=== PATIENT | female | born 1970 | race Caucasian/White ===

== ENCOUNTER 2017-02-07 15:43 | Emergency (ER) | payer BC, MEDICAID ==
[~2017-02-07] VITALS: Ht 152.4 cm; Wt 59.0 kg
--- NOTE | 2017-02-07 17:26 | NUR ---
MSE COMPLETED, PT D/C'D HOME, ACI GIVEN. PT AMBULATED W/O DIFF/TOOK ALL BELONGINGS.
[2017-02-07 17:28] VITALS: BP 142/81
== END 2017-02-07 17:28 | disposition home or self-care (01) ==
LOC: ER 15:53
DX: S80.12XA Contusion of left lower leg, initial encounter (principal); W18.30XA Fall on same level, unspecified, initial encounter; Y93.89 Activity, other specified; Y92.9 Unspecified place or not applicable; Y99.9 Unspecified external cause status
CPT/HCPCS: 73590; 99284; A4663

== ENCOUNTER 2018-03-15 16:52 | Emergency (ER) | payer SELFPAY ==
[~2018-03-15] VITALS: Ht 165.1 cm; Wt 56.7 kg
--- NOTE | 2018-03-15 18:45 | NUR ---
DR CORRAL AT THE BEDSIDE FOR MSE.
[2018-03-15 19:00] LABS: *BILIRUBIN,URIN NEGATIVE (NEGATIVE); *BLOOD, URINE 2+ (NEGATIVE); *COLOR,URINE YELLOW (YELLOW); *KETONES,URINE NEGATIVE (NEGATIVE); *PROTEIN,URINE NEGATIVE (NEGATIVE); *UROBILINOGEN,URINE 0.2 E.U./dl (NORMAL); LEUKOCYTE ESTERASE ,URINE NEGATIVE (NEGATIVE); NITRITE, URINE NEGATIVE (NEGATIVE); UGLUCOSE NEGATIVE (NEGATIVE)
[2018-03-15 19:02] LABS: *URINE HCG, QUAL NEGATIVE (NEGATIVE)
[2018-03-15 19:04] LABS: *CLARITY,URINE HAZY (CLEAR)
[2018-03-15 19:05] LABS: BACTERIA,URINE FEW /HPF (NONE SEEN); RBC,URINE 20-50 /HPF (0-3); SQUAMOUS EPITHELIAL CELL,UR MODERATE /HPF (NONE SEEN); WBC,URINE 0-3 /HPF (0-3)
--- NOTE | 2018-03-15 19:16 | NUR ---
HANDS OFF REPORT GIVEN TO ASHISH PETERSON.
--- NOTE | 2018-03-15 19:23 | NUR ---
RECEIVED SHIFT REPORT FROM KRISTEN AMAYA. PT RESTING IN BED AT THIS TIME. DOES NOT APPEAR TO BE IN ANY APPARENT DISTRESS AT THIS TIME.
--- NOTE | 2018-03-15 19:24 | NUR ---
WAITING FOR US TECH TO ARRIVE IN UNIT.
--- NOTE | 2018-03-15 19:28 | NUR ---
US TECH AT BEDSIDE. FEMALE MAP DRAFTER AT BEDSIDE.
--- NOTE | 2018-03-15 20:29 | NUR ---
Patient discharged to home in stable conditon. Written and verbal after care instructions given. Patient verbalizes understanding of instructions. ALL BELONGINGS W/ PT. PT SELF-AMBULATED WITHOUT DIFFICULTY.
[2018-03-15 20:30] VITALS: BP 136/88
== END 2018-03-15 20:30 | disposition home or self-care (01) ==
LOC: ER 16:55
DX: T81.89XA Other complications of procedures, not elsewhere classified, initial encounter (principal)
CPT/HCPCS: 76705; 81001; 84703; 99285; A4663